=== PATIENT | female | born 1995 | race African-American/Black ===

== ENCOUNTER 2023-08-07 08:31 | Emergency (ER) | payer OTHER ==
[~2023-08-07] VITALS: Ht 154.9 cm; Wt 82.7 kg
[2023-08-07 08:41] VITALS: TEMP 98.4
[2023-08-07] MEDS ORDERED: Ketorolac 15 MG/ML VIAL IV ONE (09:45)
[2023-08-07] MEDS ORDERED: NS 1,000 ML IV ONE (09:45)
[2023-08-07 09:58] LABS: BASO % 0.5 % (0.0-2.0); EOS # 0.1 K/mm3 (0.0-0.7); EOS % 1.1 % (0.0-4.0); GRAN # 3.5 K/mm3 (1.4-6.5); GRAN % 57.8 % (42.2-75.2); HEMOGLOBIN 15.5 g/dl (12.5-16.0); LYMPH # 1.7 K/mm3 (1.2-3.4); LYMPH % 27.7 % (20.0-51.0); MEAN CELL VOLUME 89 fl (80.0-100.0); MEAN CORPUSCULAR HEMOGLOBIN 31 pg (27-31); MEAN CORPUSCULAR HGB CONC 34 g/dl (33.0-37.0); MEAN PLATELET VOLUME 9.1 fl (7.4-10.4); MONO # 0.8 K/mm3 (0.1-0.6); MONO % 12.6 % (1.7-9.3); PLATELET COUNT 344 K/mm3 (130-400); RED BLOOD COUNT 5.08 M/mm3 (4.10-5.30); REDCELL DISTRIBUTION WIDTH-CV 11.9 % (11.5-14.5)
[2023-08-07 10:11] LABS: URINE APPEARANCE CLOUDY (CLEAR/HAZY); URINE BLOOD NEGATIVE (NEGATIVE); URINE COLOR YELLOW (YELLOW); URINE GLUCOSE NEGATIVE (NEGATIVE); URINE KETONE NEGATIVE (NEGATIVE); URINE NITRATE POSITIVE (NEGATIVE); URINE PROTEIN(semi-quant) NEGATIVE (NEGATIVE); URINE UROBILINOGEN 0.2 E.U/dL (0.2-1.0)
[2023-08-07 10:16] LABS: COLLECTION METHOD CLEAN CATCH
[2023-08-07 10:17] LABS: BILIRUBIN,TOTAL 0.2 mg/dL (0.2-1.2); CALCIUM 9.7 mg/dL (8.4-10.2); CREATININE, serum 0.93 mg/dL (0.57-1.11); POTASSIUM 4.2 mEq/L (3.5-4.5); TOTAL PROTEIN 8.5 g/dl (6.2-8.1)
[2023-08-07] MEDS ORDERED: Iohexol 300 - 100 ML VIAL IV ONE (10:29)
[2023-08-07] MEDS ORDERED: NS 100 ML IV SCH (10:30)
[2023-08-07] MEDS ORDERED: MOTRIN 800800 MG/TAB PO (11:31)
[2023-08-07] MEDS ORDERED: ZOFRAN ODT4 MG PO (11:31)
[2023-08-07] MEDS ORDERED: CIPRO 500MG TA500 MG PO (11:31)
[2023-08-07 11:52] VITALS: BP 110/75; PULSE 88
== END 2023-08-07 11:59 | disposition home or self-care (01) ==
LOC: COL.ER 08:31
PROVIDERS: Personal Emergency Response Attendant
DX: N39.0 Urinary tract infection, site not specified (principal); R19.7 Diarrhea, unspecified
CPT/HCPCS: J1885; J7030; Q9967